=== PATIENT | female | born 1980 | race Caucasian/White ===

== ENCOUNTER → 2018-03-17 | Outpatient (CLI) | payer OTHER | LOC: FIMAGING 12:38 | PROVIDERS: ATTEND Obstetrics & Gynecology | DX: O44.32 Partial placenta previa with hemorrhage, second trimester (principal); O43.122 Velamentous insertion of umbilical cord, second trimester; O99.282 Endocrine, nutritional and metabolic diseases complicating pregnancy, second trimester; O09.512 Supervision of elderly primigravida, second trimester; E05.90 Thyrotoxicosis, unspecified without thyrotoxic crisis or storm; Z3A.19 19 weeks gestation of pregnancy ==

== ENCOUNTER → 2018-04-21 | Outpatient (CLI) | payer OTHER | LOC: FIMAGING 09:30 | PROVIDERS: ATTEND Hospitalist | DX: O99.282 Endocrine, nutritional and metabolic diseases complicating pregnancy, second trimester (principal); E05.00 Thyrotoxicosis with diffuse goiter without thyrotoxic crisis or storm; O44.42 Low lying placenta NOS or without hemorrhage, second trimester; O43.192 Other malformation of placenta, second trimester; O09.512 Supervision of elderly primigravida, second trimester; Z3A.24 24 weeks gestation of pregnancy ==

== ENCOUNTER → 2018-05-26 | Outpatient (CLI) | payer OTHER | LOC: FIMAGING 13:54 | PROVIDERS: ATTEND Hospitalist | DX: O09.513 Supervision of elderly primigravida, third trimester (principal); O44.43 Low lying placenta NOS or without hemorrhage, third trimester; Z3A.29 29 weeks gestation of pregnancy ==

== ENCOUNTER → 2018-06-23 | Outpatient (CLI) | payer OTHER | LOC: FIMAGING 14:37 | PROVIDERS: ATTEND Hospitalist | DX: O09.513 Supervision of elderly primigravida, third trimester (principal); O44.43 Low lying placenta NOS or without hemorrhage, third trimester; O99.280 Endocrine, nutritional and metabolic diseases complicating pregnancy, unspecified trimester; Z3A.33 33 weeks gestation of pregnancy ==

== ENCOUNTER 2018-07-24 16:15 | Inpatient (IN) | payer OTHER ==
[2018-07-24] MEDS ORDERED: LIDOCAINE 1% 300 MG/30 ML SDV SC PRN (16:41)
[2018-07-24] MEDS ORDERED: EPSOM SALT 454 GM TP PRN (16:41)
[2018-07-24] MEDS ORDERED: OLIVE OIL 118 ML BTL MISC PRN (16:41)
[2018-07-24] MEDS ORDERED: IBUPROFEN 600 MG TAB PO PRN (16:41)
[2018-07-24] MEDS ORDERED: OXYTOCIN/RINGERS LACTATE 1,000 ML IV PRN (16:41)
[2018-07-24] MEDS ORDERED: TERBUTALINE SULFATE 1 MG/ML VIAL IV PRN (16:41)
[2018-07-24] MEDS ORDERED: MISOPROSTOL 200 MCG TAB PR PRN (16:41)
[2018-07-24] MEDS ORDERED: LR 1,000 ML IV PRN (16:41)
[2018-07-24] MEDS ORDERED: OXYTOCIN 10 UNIT/ML VIAL ONE (16:43)
[2018-07-24] MEDS ORDERED: MISOPROSTOL 200 MCG TAB ONE (16:43)
[2018-07-24] MEDS ORDERED: LIDOCAINE 1% 300 MG/30 ML SDV ONE (16:43)
[2018-07-24] MEDS ORDERED: TERBUTALINE SULFATE 1 MG/ML VIAL ONE (16:43)
[2018-07-24] MEDS ORDERED: OLIVE OIL 118 ML BTL ONE (16:43)
[2018-07-24] MEDS ORDERED: AMMONIA AROMATIC 1 EACH AMP IH ONE (16:43)
[2018-07-24 17:04] LABS: PLATELET COUNT 165 10^3/uL (150-400)
[2018-07-24] MEDS ORDERED: METHYLERGONOVINE MAL 0.2 MG/ML INJ ONE (18:24)
[2018-07-24] MEDS ORDERED: HEMABATE 250 MCG/1 ML AMP IM ONE (18:30)
[2018-07-24] MEDS ORDERED: fentaNYL 100 MCG/2 ML INJ ONE (18:35)
[2018-07-24] MEDS ORDERED: ONDANSETRON 4 MG/2 ML VIAL IVP ONE (20:30)
--- NOTE | 2018-07-24 21:12 | PDGENHP ---
History and Physical - Chief Complaint Active labor - History of Present Illness Bouchra is a 38 yo G1 today at 38w3d who presented to L&D this afternoon in active labor, dilated to 8cm. She reported that ctx's began earlier that day, but had just become more acutely painful within the past few hours. Doesn't think her water has broken on arrival. Overall uncomplicated 1st . She has a dx of Graves dz and sees Rohini Smith from [facility] (no meds). Otherwise RH neg, and AMA. History Information - Allergies/Home Medication List Allergies/Adverse Reactions: Penicillins Allergy (Unverified 07/24/18 16:40) Rash Sulfa (Sulfonamide Antibiotics) Allergy (Unverified 07/24/18 16:40) Rash I have personally reviewed and updated: family history, medical history, social history, surgical history Past Medical History: Graves dz, Anemia, Rh negative, UTI's (h/o pyelo x 1 when very young) - Surgical History Additional surgical history: None pertinent - Family History Additional family history: Sister with bipolar dz - Social History Smoking Status: Never smoked Alcohol Use: None Review of Systems Review of Systems: ROS: 10pt was reviewed & negative except for what was stated in HPI & below Physical Exam Physical Exam: In active labor, very uncomfortable. Dilated to 8cm on RN exam on admission. Vertex per her report. Lab Data & Imaging Review 07/24/18 16:52 WBC 16.24 10^3/uL (3.80-9.50) H 07/24/18 16:52 RBC 3.83 10^6/uL (4.18-5.33) L 07/24/18 16:52 Hgb 13.1 g/dL (12.6-16.3) 07/24/18 16:52 Hct 35.8 % (38.0-47.0) L 07/24/18 16:52 MCV 93.5 fL (81.5-99.8) 07/24/18 16:52 MCH 34.2 pg (27.9-34.1) H 07/24/18 16:52 MCHC 36.6 g/dL (32.4-36.7) 07/24/18 16:52 RDW 12.4 % (11.5-15.2) 07/24/18 16:52 Plt Count 165 10^3/uL (150-400) 07/24/18 16:52 MPV 11.9 fL (8.7-11.7) H 07/24/18 16:52 Neut % (Auto) 85.6 % (39.3-74.2) H 07/24/18 16:52 Lymph % (Auto) 9.8 % (15.0-45.0) L 07/24/18 16:52 [place] % (Auto) 3.9 % (4.5-13.0) L 07/24/18 16:52 Eos % (Auto) 0.0 % (0.6-7.6) L 07/24/18 16:52 Baso % (Auto) 0.2 % (0.3-1.7) L 07/24/18 16:52 Nucleat RBC Rel Count 0.0 % (0.0-0.2) 07/24/18 16:52 Absolute Neuts (auto) 13.91 10^3/uL (1.70-6.50) H 07/24/18 16:52 Absolute Lymphs (auto) 1.59 10^3/uL (1.00-3.00) 07/24/18 16:52 Absolute Monos (auto) 0.63 10^3/uL (0.30-0.80) 07/24/18 16:52 Absolute Eos (auto) 0.00 10^3/uL (0.03-0.40) L 07/24/18 16:52 Absolute Basos (auto) 0.03 10^3/uL (0.02-0.10) 07/24/18 16:52 Absolute Nucleated RBC 0.00 10^3/uL (0-0.01) 07/24/18 16:52 Immature Gran % 0.5 % (0.0-1.1) 07/24/18 16:52 Immature Gran # 0.08 10^3/uL (0.00-0.10) 07/24/18 16:52 Patient ABO/Rh A NEGATIVE 07/24/18 16:52 Antibody Screen POSITIVE 07/24/18 16:52 Antibody Identification SIG ANTIBODIES RULED OUT 07/24/18 16:52 Imaging Review: FHR 130s bpm, mod pastor, accels present, no decels. Assessment & Plan Assessment: 38 yo G1 at 38w3d presents in active labor. GBS neg. Declines pain meds. Rh neg - screen and RhoGam PP PRN. Graves dz, f/u with Endo PP, no meds. Anemia - will likely continue iron supps PP. Routine cares, expectant mgmt. JM
--- NOTE | 2018-07-24 21:12 | OBDEL ---
Info Type: Vaginal Presentation at Delivery: Vertex L&D Analgesia/Anesthesia Type: None GBS+: No Indications for Delivery: Spontaneous Labor Vaginal Delivery - Delivery Provider Delivery Physician/CNM: Lance Cuellar - Labor and Delivery Onset of Contractions Date: 07/24/18 Onset of Contractions Time: 03:00 Onset of Contractions Type: Spontaneous Rupture of Membranes Date: 07/24/18 Rupture of Membranes Time: 16:58 Rupture of Membranes Type: Spontaneous Amniotic Fluid Color: Clear Dilation Complete Date: 07/24/18 Dilation Complete Time: 17:16 Placenta Delivery Date: 07/24/18 Placenta Delivery Time: 18:21 Total Hours of Labor: 15 Laceration: 2nd Degree Repair: 3-0 Vaginal Sponge Count Correct: Yes Vaginal Needle Count Correct: Yes Vaginal Sweep Performed: Yes EBL: 1500 Delivery Events: Post Hemorrhage (Atony) Delivery Comment: Uncomplicated , unmedicated. Had brisk bleeding from uterine atony immediately after delivery. Bleeding continued despite rectal Cytotec, IV pit, IM methergine and Hemabate and a bimanual exam. Ultimately did slow and was firm below the umbilicus. Repaired 2nd degree lac. EBL 1500cc. [place] Data Stoll Delivery Date: 07/24/18 Delivery Time: 18:12 Sex of Infant: Female Weight (gm): 3042 g Score (1 Min): 8 Score (5 Min): 9 ICD10 Worksheet Patient Problems: Problems Problem Status Onset PPH ( hemorrhage) Acute (spontaneous vaginal delivery) Acute - ICD10 Problem Qualifiers (1) PPH ( hemorrhage) Qualifiers: hemorrhage type: other immediate Qualified Code(s): O72.1 - Other immediate hemorrhage (2) (spontaneous vaginal delivery)
[2018-07-24] MEDS ORDERED: HYDROCORTISONE 0.5% CREAM TP PRN (21:14)
[2018-07-24] MEDS ORDERED: SIMETHICONE 80 MG TAB CHEW PO PRN (21:14)
[2018-07-24] MEDS ORDERED: oxyCODONE IR 5 MG TAB PO PRN (21:14)
[2018-07-24] MEDS: ACETAMINOPHEN 325 MG TAB PO SCH (21:59)
[2018-07-25] MEDS: IBUPROFEN 600 MG TAB PO SCH ×3 (05:05→18:45)
[2018-07-25] MEDS: ACETAMINOPHEN 325 MG TAB PO SCH ×3 (05:05→18:43)
--- NOTE | 2018-07-25 11:51 | OBPP ---
Progress Note Assessment/Plan: Assessment: 38 G1 now P1 PPD#1 s/p c/b pp hemorrhage of 1500EBL and now symptomatically anemic with a hct of 21%. Urinary catheter still in place. Plan: Will bolus 1 L of NS. Observe symptoms, and will recheck CBC this afternoon. If more anemic, will likely recommend transfusion. Briefly discussed transfusion now. Agreed to hydrate, observe and recheck about 24 hours after delivery. Trinh Bradford MD, [facility] 07/25/18 13:32 Subjective/ Course: Pt doing OK, is worn out. Was able to stand at side of bed, but too lightheaded to ambulate to the bathroom, so urinary catheter is still in place. 07/25/18 13:36 Objective: 07/25/18 05:15 Patient ABO/Rh A NEGATIVE 07/24/18 21:25 Temp Pulse Resp BP Pulse Ox 37.9 C 106 H 18 121/80 H 98 07/25/18 05:30 07/25/18 05:30 07/25/18 05:30 07/25/18 05:30 07/25/18 05:30 VS right now - 124/76 HR 84 Intake and Output 07/24/18 07/25/18 07/25/18 17:59 05:59 17:59 Intake Total 2000 Output Total 2099 Balance -100 Weight 81.647 kg Intake: IV Intake (ml) 2000 Output: Urine (ml) 600 Catheter 600 Estimated Blood Loss (ml) 1500 gen - pale, NAD CV - RRR chest - CTAB abd - soft, + BS, fundus firm at u-2 ext - BLE no calf tenderness or edema peripad with mod amount of lochia Uterine Position/Fundal Height: Umbilicus -2 Uterine Tone: Firm
[2018-07-25] MEDS ORDERED: LR 1,000 ML IV ONE (13:43)
--- NOTE | 2018-07-25 18:17 | OBPP ---
Progress Note Assessment/Plan: Assessment: 38 G1 now P1 PPD#1 s/p c/b pp hemorrhage of 1500EBL and now symptomatically anemic with a hct of 21%. Urinary catheter still in place. Plan: Will bolus 1 L of NS. Observe symptoms, and will recheck CBC this afternoon. If more anemic, will likely recommend transfusion. Briefly discussed transfusion now. Agreed to hydrate, observe and recheck about 24 hours after delivery. Trinh Bradford MD, [facility] 07/25/18 13:32 A/P: 38 , now about 24 hours s/p c/b pp hemorrhage, with symptomatic anemia, not improving and hct dropping slightly. Will transfuse 2 U PRBCs - written informed consent obtained. Plan to discontinue urinary catheter after transfusion, as soon as pt is ambulatory. Trinh Bradford MD 07/25/18 18:13 Subjective/ Course: Pt doing OK, is worn out. Was able to stand at side of bed, but too lightheaded to ambulate to the bathroom, so urinary catheter is still in place. 07/25/18 13:36 07/25/18 18:16 Pt doing fine, but not improving at all. Gets short of breath moving around in bed and lightheaded. Has still not been out of bed yet. Objective: 07/25/18 17:20 Patient ABO/Rh A NEGATIVE 07/24/18 21:25 Temp Pulse Resp BP Pulse Ox 37.8 C 108 H 20 132/63 H 98 07/25/18 11:53 07/25/18 11:53 07/25/18 11:53 07/25/18 11:53 07/25/18 05:30 gen - pleasant pale female, NAD Intake and Output 07/25/18 07/25/18 07/26/18 05:59 17:59 05:59 Intake Total 1999 Output Total 2099 Balance -100 Weight 81.647 kg Intake: IV Intake (ml) 1999 Output: Urine (ml) 600 Catheter 600 Estimated Blood Loss (ml) 1500 Pt had 350ml urine out in 8 hours [id number]. Now: uop in past 4 hours = 600 ml (after given a 1 L bolus of NS) Uterine Position/Fundal Height: Umbilicus -2 Uterine Tone: Firm
[2018-07-26] MEDS: IBUPROFEN 600 MG TAB PO SCH ×4 (03:45→21:28)
[2018-07-26] MEDS: ACETAMINOPHEN 325 MG TAB PO SCH ×4 (09:37→21:48)
[2018-07-26] MEDS: DOCUSATE SODIUM 100 MG CAP PO PRN ×2 (09:37→21:29)
--- NOTE | 2018-07-26 14:39 | OBPP ---
Progress Note Assessment/Plan: Assessment: 38 G1 now P1 PPD#2 s/p c/b pp hemorrhage of 1500EBL and now s/p 2units PRBCs. - Feeling much better today after blood yesterday, big improvement in sx. Otherwise feeling pretty well. - Hgb came up appropriately, 2 points. Lochia minimal. - Will plan on dc home tomorrow. CALVIN Subjective/ Course: Pt doing OK, is worn out. Was able to stand at side of bed, but too lightheaded to ambulate to the bathroom, so urinary catheter is still in place. 07/25/18 13:36 07/25/18 18:16 Pt doing fine, but not improving at all. Gets short of breath moving around in bed and lightheaded. Has still not been out of bed yet. 07/26/18 14:40 Feeling much better this AM - really no remaining s/sx of anemia. Up and moving , tolerating diet, nipple marcelo for BF. Thinks she'll want to go tomorrow. Objective: 07/26/18 06:45 Patient ABO/Rh A NEGATIVE 07/24/18 21:25 Temp Pulse Resp BP Pulse Ox 36.4 C 82 18 111/72 98 07/26/18 11:02 07/26/18 11:02 07/26/18 11:02 07/26/18 11:02 07/25/18 05:30 Laboratory Tests 07/25/18 07/26/18 17:20 06:45 Hgb 6.8 L 8.7 L Hct 19.0 L 24.3 L Uterine Position/Fundal Height: At Umbilicus Uterine Tone: Firm
[2018-07-26 20:24] VITALS: BP 123/75
[2018-07-27] MEDS: IBUPROFEN 600 MG TAB PO SCH ×3 (05:22→11:38)
[2018-07-27] MEDS: ACETAMINOPHEN 325 MG TAB PO SCH ×3 (05:22→11:37)
[2018-07-27] MEDS: DOCUSATE SODIUM 100 MG CAP PO PRN (11:37)
--- NOTE | 2018-07-27 13:26 | OBGCSDC ---
General Delivery Information - General Info : 1 Para: 1 Abortions: 0 Type: Vaginal L&D Analgesia/Anesthesia Type: None Admission Date: 07/24/18 Labs: Patient ABO/Rh A NEGATIVE 07/24/18 21:25 Hct 24.3 % (38.0-47.0) L 07/26/18 06:45 - Hospital Course : Pt doing OK, is worn out. Was able to stand at side of bed, but too lightheaded to ambulate to the bathroom, so urinary catheter is still in place. 07/25/18 13:36 07/25/18 18:16 Pt doing fine, but not improving at all. Gets short of breath moving around in bed and lightheaded. Has still not been out of bed yet. 07/26/18 14:40 Feeling much better this AM - really no remaining s/sx of anemia. Up and moving , tolerating diet, nipple marcelo for BF. Thinks she'll want to go tomorrow. 07/27/18 13:24 Doing much better. able to amb without dizziness. urinating fine. bld is like menses amount. BF ok using SNS and marcelo. pumping and has pump at home Vaginal - Delivery Provider Delivery Physician/CNM: Lance Cuellar - Diagnosis Labor: Spontaneous Rupture of Membranes Type: Spontaneous Amniotic Fluid Color: Clear Laceration: 2nd Degree Repair: 3-0 Delivery Events: Post Hemorrhage (Atony) - Delivery EBL: 1500 Data LEXIE: 08/05/18 Gestational Age: 38 week(s) and 5 day(s) Stoll Delivery Date: 07/24/18 Delivery Time: 18:12 Sex of Infant: Female [place] Weight (gm): 3042 g Score (1 Min): 8 Score (5 Min): 9 Discharge Information - Discharge Information Condition: Good Instruction/Follow Up: See Instruction Sheet, Four Weeks (with therapist), Six Weeks (with JM)
--- NOTE | 2018-07-27 13:26 | OBPP ---
Progress Note Assessment/Plan: Assessment: PPD 3 s/p with PPH and need for transfusion Plan: d/c home, improved and stable 07/27/18 13:23 Subjective/ Course: Pt doing OK, is worn out. Was able to stand at side of bed, but too lightheaded to ambulate to the bathroom, so urinary catheter is still in place. 07/25/18 13:36 07/25/18 18:16 Pt doing fine, but not improving at all. Gets short of breath moving around in bed and lightheaded. Has still not been out of bed yet. 07/26/18 14:40 Feeling much better this AM - really no remaining s/sx of anemia. Up and moving , tolerating diet, nipple marcelo for BF. Thinks she'll want to go tomorrow. 07/27/18 13:24 Doing much better. able to amb without dizziness. urinating fine. bld is like menses amount. BF ok using SNS and marcelo. pumping and has pump at home Objective: 07/26/18 06:45 Patient ABO/Rh A NEGATIVE 07/24/18 21:25 Temp Pulse Resp BP Pulse Ox 36.2 C 82 17 123/75 H 95 07/26/18 20:00 07/26/18 20:00 07/26/18 20:00 07/26/18 20:00 07/26/18 20:00 Uterine Position/Fundal Height: Umbilicus -2 Uterine Tone: Firm Physical Exam - Physical Exam Abdomen: non-tender, soft, other (FF at umb -2) Extremities: non-tender, pedal edema (none) Skin: normal color, warm/dry Neuro/Psych: alert, normal mood/affect
== END 2018-07-27 15:30 | disposition home or self-care (01) | DRG 807 ==
LOC: FLD 16:15 → OBSVTOIN 16:15 → FOB 07-25 00:34 → FLD 07-25 00:36 → FOB 07-26 10:30
PROVIDERS: ADMIT Obstetrics & Gynecology; ATTEND Obstetrics & Gynecology
PROC: 10E0XZZ Delivery of Products of Conception, External Approach (ICD-10-PCS; principal; 2018-07-24)
PROC: 0KQM0ZZ Repair Perineum Muscle, Open Approach (ICD-10-PCS; principal; 2018-07-24)
PROC: 30233N1 Transfusion of Nonautologous Red Blood Cells into Peripheral Vein, Percutaneous Approach (ICD-10-PCS; 2018-07-25)
DX: O72.1 Other immediate postpartum hemorrhage (principal); O99.03 Anemia complicating the puerperium; O70.1 Second degree perineal laceration during delivery; O99.284 Endocrine, nutritional and metabolic diseases complicating childbirth; E05.00 Thyrotoxicosis with diffuse goiter without thyrotoxic crisis or storm; Z3A.38 38 weeks gestation of pregnancy; Z37.0 Single live birth
CPT/HCPCS: J2210; J2590; J3010; J3105; P9016

== ENCOUNTER → 2018-11-20 | Outpatient (CLI) | payer OTHER | LOC: FIMAGING 11:14 | PROVIDERS: ATTEND Family Medicine | DX: Z30.431 Encounter for routine checking of intrauterine contraceptive device (principal) ==

== ENCOUNTER → 2018-11-23 | Outpatient (CLI) | payer OTHER | LOC: FIMAGING 08:13 | PROVIDERS: ATTEND Family Medicine | DX: Z30.431 Encounter for routine checking of intrauterine contraceptive device (principal) ==